=== PATIENT | female | born 1990 | race Caucasian/White ===

== ENCOUNTER 2018-01-18 20:20 | Outpatient (CLI) | END 2018-01-18 20:39 | disposition short-term general hospital (02) | LOC: AMBL 20:20 | PROVIDERS: ATTEND Family Medicine | DX: R55 Syncope and collapse (principal); R53.1 Weakness; R11.2 Nausea with vomiting, unspecified; R61 Generalized hyperhidrosis; N39.0 Urinary tract infection, site not specified ==